=== PATIENT | female | born 1985 | race Asian ===

== ENCOUNTER 2020-03-28 23:04 | Emergency (ER) | payer BC ==
[~2020-03-28] VITALS: Ht 160 cm; Wt 88.6 kg
[2020-03-28] MEDS ORDERED: OMEP20 PO (23:12)
[2020-03-29] MEDS ORDERED: LORazepam 2 MG/ML VIAL IM ONE (00:30)
[2020-03-29] MEDS ORDERED: ACETAMINOPHEN 500 MG TABLET PO ONE (00:30)
[2020-03-29] MEDS ORDERED: MAG HYDROX/AL HYDROX/SIMETH ES 30 ML SUSPENSION UDCUP PO ONE (00:30)
[2020-03-29 00:45] VITALS: BP 138/75
[2020-03-29 00:53] LABS: EOSINOPHILS % (AUTO) 0.6 % (1.0-6.0); HEMATOCRIT 38.5 % (36-46); LYMPHOCYTES % (AUTO) 22.2 % (22.0-44.0); MEAN CORPUSCULAR HEMOGLOBIN 29.9 pg (26.0-34.0); MEAN CORPUSCULAR HGB CONC 33.8 G/dL (31.0-37.0); MEAN CORPUSCULAR VOLUME 88 fL (80-100); MONOCYTES # (AUTO) 0.5 K/uL (0.1-1.0); MONOCYTES % (AUTO) 5.3 % (2.0-9.0); NEUTROPHILS # (AUTO) 6.3 K/uL (1.8-7.7); NEUTROPHILS % (AUTO) 70.9 % (40.0-70.0); PLATELET COUNT (AUTO) 348 K/uL (150-450); RED BLOOD CELL COUNT(AUTO) 4.35 MIL/uL (4.00-5.20)
[2020-03-29 01:04] LABS: ANION GAP 3 mmol/L (8-16); CALCIUM, TOTAL 9.3 mg/dL (8.8-10.5); CARBON DIOXIDE 29 mmol/L (22-29); CHLORIDE 104 mmol/L (98-107); CREATININE 0.73 mg/dL (0.60-1.30); GLOMERULAR FILTR. RATE CALC > 60 mL/min (>60); GLUCOSE,RANDOM 98 mg/dL (70-110); POTASSIUM 3.7 mmol/L (3.5-5.1); SODIUM SERUM 136 mmol/L (136-145); UREA NITROGEN, BLOOD 9 mg/dL (7-18)
[2020-03-29 01:16] LABS: HCG,QUANTITATIVE < 1 mIU/mL (0-6)
== END 2020-03-29 01:30 | disposition home or self-care (01) ==
LOC: EMS 23:05
DX: K21.9 Gastro-esophageal reflux disease without esophagitis (principal); F17.210 Nicotine dependence, cigarettes, uncomplicated; Z79.899 Other long term (current) drug therapy
CPT/HCPCS: 36415; 80048; 84702; 85025; 93005; 96372; 99284; J2060

== ENCOUNTER → 2024-08-28 | Emergency (ER) | payer BC ==
[~2024-08-28] VITALS: Ht 157.5 cm; Wt 100.0 kg
[~2024-08-28] MED LIST: OMEP20 PO
[2024-08-28 22:01] VITALS: BP 128/86; PULSE 72; RESP 20; TEMP 98.4; O2SAT 99
== END | disposition left against medical advice (07) ==
LOC: EMS 21:55
DX: M25.512 Pain in left shoulder (principal); Z53.21 Procedure and treatment not carried out due to patient leaving prior to being seen by health care provider